=== PATIENT | male | born 1960 | race Caucasian/White ===

== ENCOUNTER → 2022-07-03 | Outpatient (CLI) | payer OTHER ==
--- NOTE | 2022-07-03 14:05 | US ---
EXAMINATION TYPE: US venous doppler duplex LE RT DATE OF EXAM: 07/03/2022 1:29 PM COMPARISON: NONE CLINICAL HISTORY: I82.401 Acute embolism and thrombosis of unspecifi. Pain right knee. History of DVT left leg. Patient currently on blood thinner SIDE PERFORMED: Right TECHNIQUE: The lower extremity deep venous system is examined utilizing real time linear array sonog lynda with graded compression, doppler sonography and color-flow sonography. VESSELS IMAGED: Common Femoral Vein Deep Femoral Vein Greater Saphenous Vein * Femoral Vein Popliteal Vein Small Saphenous Vein * Proximal Calf Veins (* superficial vessels) Right Leg: No evidence of DVT. Complex anechoic area right popliteal fossa = 7.2 x 1.5 x 2.6cm, Bake r's cyst IMPRESSION: No evidence of DVT.
--- NOTE | 2022-07-03 15:05 | XR ---
EXAMINATION TYPE: XR knee limited RT DATE OF EXAM: 07/03/2022 CLINICAL HISTORY: Osteoarthritis. Pain and swelling. TECHNIQUE: Frontal and lateral views of the right knee are obtained. COMPARISON: None. FINDINGS: There is no acute fracture/dislocation evident in right knee. Moderate narrowing medial ti biofemoral compartment. Mild to moderate narrowing lateral tibiofemoral and patellofemoral compartmen ts. No significant spurring. There is a large suprapatellar joint effusion. Mild posterior arterial v ascular calcification. IMPRESSION: As above.
== END | disposition home or self-care (01) ==
LOC: RADUSWWP 12:49
PROVIDERS: ATTEND Family Medicine
DX: I82.401 Acute embolism and thrombosis of unspecified deep veins of right lower extremity (principal)

== ENCOUNTER → 2022-09-17 | Outpatient (CLI) | payer OTHER ==
--- NOTE | 2022-09-17 15:46 | US ---
EXAMINATION TYPE: US venous doppler duplex LE LT DATE OF EXAM: 09/17/2022 3:24 PM COMPARISON: CLINICAL HISTORY: I82.409 DVT. Pain and swelling. On blood thinners. SIDE PERFORMED: Left TECHNIQUE: The lower extremity deep venous system is examined utilizing real time linear array sonog lynda with graded compression, doppler sonography and color-flow sonography. VESSELS IMAGED: Common Femoral Vein Deep Femoral Vein Greater Saphenous Vein * Femoral Vein Popliteal Vein Small Saphenous Vein * Proximal Calf Veins (* superficial vessels) Left Leg: POSITIVE FOR DVT in femoral vein. IMPRESSION: 1. Deep venous thrombosis left femoral vein to the level of the popliteal vein. A Red level critical message alert has been initiated for Douglas Andre MD via the [facility] Critical Results System on 09/17/2022 3:43 PM. This message alert has been sent to Douglas Andre MD via the preferences provided by the clinician for the receipt of Radiology Critical Findings. [employer] e ID [id number].
== END | disposition home or self-care (01) ==
LOC: RADUSWWP 14:57
PROVIDERS: ATTEND Family Medicine
DX: I82.412 Acute embolism and thrombosis of left femoral vein (principal); I82.432 Acute embolism and thrombosis of left popliteal vein

== ENCOUNTER → 2022-10-09 | Outpatient (CLI) | payer OTHER ==
--- NOTE | 2022-10-12 10:17 | US ---
EXAMINATION TYPE: US arterial LE multi level DATE OF EXAM: 10/09/2022 2:56 PM CLINICAL HISTORY: I82.409 DVT. Left calf pain when walking. Patient currently has DVT in left femora l vein- on blood thinners. History of: Smoker: Current Smoker Hypertension: No Diabetic: No Hyperlipidemia: No TIA/CVA: No Previous Vascular Surgery: No CAD: No IA: No Vascular Ulcers: No Claudication: Left Gangrene: No Doppler Waveforms: Right: Multiphasic Left: Multiphasic Right Brachial Pressure: 126 Left Brachial Pressure: 143 Ankle-Brachial Indices: Right: 1.1 Left: 0.7 Toe Brachial Indices: Right: 0.7 Left: 0.5 IMPRESSION: 1. Multiple right ADAMA and TBI. 2. Abnormally low left TBI and ADAMA suggestive of mild to moderate left-sided atherosclerotic disease correlate with dedicated arteriogram or CTA as clinically warranted.
== END | disposition home or self-care (01) ==
LOC: RADUSWWP 14:07
PROVIDERS: ATTEND Family Medicine
DX: I82.402 Acute embolism and thrombosis of unspecified deep veins of left lower extremity (principal); Z79.01 Long term (current) use of anticoagulants
CPT/HCPCS: 93923